=== PATIENT | male | born 1940 | race African-American/Black ===

== ENCOUNTER 2018-06-08 09:22 | Emergency (ER) | payer OTHER ==
[~2018-06-08] VITALS: Ht 182.9 cm; Wt 102.5 kg
[2018-06-08] MEDS ORDERED: IOVERSOL 350 MG/ML 100 ML VIAL ONE (09:33)
[2018-06-08] MEDS ORDERED: SODIUM CHLORIDE 0.9% 100 ML ONE (09:33)
[2018-06-08] MEDS ORDERED: ALTEPLASE 81 MG in WATER FOR INJECTION,STERILE 81 ML IV ONE (09:45)
[2018-06-08] MEDS ORDERED: ALTEPLASE 9 MG in WATER FOR INJECTION,STERILE 9 ML IV ONE (09:45)
[2018-06-08 09:55] LABS: EOSINOPHILS % (AUTO) 2.5 % (1.0-6.0); HEMATOCRIT 44.8 % (41-53); LYMPHOCYTES # (AUTO) 1.4 K/uL (1.0-4.8); LYMPHOCYTES % (AUTO) 38.1 % (22.0-44.0); MEAN CORPUSCULAR HEMOGLOBIN 31.6 pg (26.0-34.0); MEAN CORPUSCULAR HGB CONC 33.5 G/dL (31.0-37.0); MEAN CORPUSCULAR VOLUME 94 fL (80-100); MONOCYTES # (AUTO) 0.3 K/uL (0.1-1.0); MONOCYTES % (AUTO) 8.2 % (2.0-9.0); NEUTROPHILS # (AUTO) 1.8 K/uL (1.8-7.7); NEUTROPHILS % (AUTO) 50.2 % (40.0-70.0); PLATELET COUNT (AUTO) 150 K/uL (150-450); RED BLOOD CELL COUNT(AUTO) 4.76 MIL/uL (4.50-5.90); RED CELL DISTRIBUTION WIDTH 14.1 % (11.5-14.5)
[2018-06-08] MEDS ORDERED: ALTEPLASE PER STROKE PROTOCOL CLINICAL ONE (10:00)
[2018-06-08 10:04] LABS: CREATININE 1.22 mg/dL (0.60-1.30); POTASSIUM 4.4 mmol/L (3.5-5.1)
[2018-06-08 10:05] LABS: PROTHROMBIN TIME 10.7 SEC (9.4-11.6)
[2018-06-08 10:10] LABS: ALBUMIN 3.4 g/dL (3.4-5.0); BILIRUBIN,TOTAL 0.4 mg/dL (0.1-1.0); TOTAL PROTEIN, SERUM 6.7 g/dL (6.4-8.2)
[2018-06-08] MEDS ORDERED: ATOR40TA28 PO (10:48)
[2018-06-08] MEDS ORDERED: AMLO-511 PO (10:48)
[2018-06-08] MEDS ORDERED: FURO40 PO (10:48)
[2018-06-08] MEDS ORDERED: ASPI-556 PO (10:48)
[2018-06-08] MEDS ORDERED: LISI-660 PO (10:48)
[2018-06-08] MEDS ORDERED: METO25XL PO (10:48)
[2018-06-08] MEDS ORDERED: METF-960 PO (10:48)
[2018-06-08] MEDS ORDERED: ACETAMINOPHEN 1000 MG/ISO-OSM 100 ML IV ONE (11:30)
[2018-06-08 11:55] VITALS: BP 164/99
== END 2018-06-08 12:33 | disposition short-term general hospital (02) ==
LOC: EMS 09:22
DX: I63.9 Cerebral infarction, unspecified (principal); R53.1 Weakness; I10 Essential (primary) hypertension; I25.10 Atherosclerotic heart disease of native coronary artery without angina pectoris
CPT/HCPCS: 36415; 37195; 70450; 70496; 71045; 80053; 82962; 84484; 85025; 85610; 93005; 96374; 99291; J0131; J2997; J7050; Q9967